=== PATIENT | female | born 1950 | race Caucasian/White ===

== ENCOUNTER 2022-05-03 10:43 | Emergency (ER) | payer MEDICARE, OTHER ==
[~2022-05-03] VITALS: Ht 149.9 cm; Wt 74.1 kg
[~2022-05-03 10:43] MED LIST: ALPR1TAB2 PO; AMLO2.5T5 PO; ASCO500C18 PO; ASPI-147; CELE200C PO; CHOL10002 PO; FOSI20TA97 PO; GLUC100017; HYDR12.5 PO; LORA10CA9; MULT-1141 PO; OMEG1CAP2; POTA-82 PO; SIMV10TA98 PO; TRAM50TA2 PO; calcium
[2022-05-03 14:10] VITALS: BP 120/70
== END 2022-05-03 14:14 | disposition home or self-care (01) ==
LOC: ER 10:43
DX: R25.2 Cramp and spasm (principal); Z88.0 Allergy status to penicillin
CPT/HCPCS: 93971; 99284